=== PATIENT | male | born 2000 | race Caucasian/White ===

== ENCOUNTER 2023-06-15 07:40 | Emergency (ER) | payer OTHER, SELFPAY ==
[2023-06-15] VITALS (12 sets, daily range): BP systolic 99–136; BP diastolic 57–99; PULSE 75–106; RESP 11–24; TEMP 37.2; O2SAT 93–99; BMI 36.2
--- NOTE | 2023-06-15 07:56 | EDS_ITS ---
HPI History of Present Illness Chief Complaint: Overdose Informant: patient Onset/Context/Timing Onset: Today Timing: Continuous Quality: Aching Location: Generalized Worsened by: Nothing Relieved by: Nothing Associated Symptoms Associated Symptoms: Positive for suicidal ideation; Negative for vomiting*, di arrhea*, fever*, rash*, seizure, palpatations or homicidal ideation Narrative Narrative: Patient presents with overdose that was noticed this morning. Patient's grandmother found the patient unresponsive this morning. EMS noted an empty bottle of Lamictal and an empty bottle of Benadryl. Patient admits to taking approximately 48 Lamictal tablets. Patient states he wanted to hurt himself. Patient denies any nausea or vomiting after taking the medications. Patient admits to some pain in his chest. Patient admits to pain all over. [facility] Medical History (Updated 06/15/23 @ 14:[address] Alejandro Thomas, ) Depression Allergy/AdvReac Type Severity Reaction Status Date / Time No Known Allergies Allergy Verified 06/15/23 07:56 Social History Smoking Status: Unknown if ever smoked ROS ROS ED Constitutional Constitutional ED: Denies chills or fever(s) Eyes Eyes: Reports blurry vision and change in vision bilateral ENT ENT ED: Denies rhinorrhea or sore throat Cardiovascular Cardiovascular: Reports chest pain; Denies palpitations Respiratory/Chest Respiratory/Chest: Denies cough or dyspnea Gastrointestinal Gastrointestinal: Reports abdominal pain; Denies nausea or vomiting Genitourinary Genitourinary ED: Denies dysuria or hematuria Musculoskeletal Musculoskeletal: Reports back pain and neck pain Integumentary Denies abscess or rash Neurologic Neurologic: Reports headache(s); Denies weakness Psychiatric Psychiatric: Reports depression, suicidal ideation and suicidal thoughts Allergic/Immunologic Allergic/Immunologic ED: Denies mouth swelling or urticaria EXAM Physical Exam Const Vital Signs: 06/15/23 07:42 06/15/23 08:41 06/15/23 09:41 Temperature 98.9 F Temperature Source Temporal Pulse Rate 96 86 106 H Respiratory Rate 20 H 22 H 24 H Blood Pressure 127/69 H 128/69 H 114/62 Blood Pressure Mean 88 88 79 Pulse Ox 99 97 96 Oxygen Delivery Method Room Air Room Air Room Air 06/15/23 10:41 06/15/23 11:22 06/15/23 13:16 Temperature Temperature Source Pulse Rate 90 78 81 Respiratory Rate 20 H 11 L 16 Blood Pressure 105/57 L 99/59 L 120/67 Blood Pressure Mean 73 72 84 Pulse Ox 93 Oxygen Delivery Method Room Air Room Air Room Air 06/15/23 14:18 06/15/23 15:21 Temperature Temperature Source Pulse Rate 75 89 Respiratory Rate 20 H 19 H Blood Pressure 113/71 112/66 Blood Pressure Mean 85 81 Pulse Ox 97 96 Oxygen Delivery Method Room Air Room Air Positive well nourished, well developed and obese General Appearance ED: well developed and NAD Nutritional Appearance: obese HEENT Reports moist mucous membranes Neck supple and no JVD Chest Wall inspection of chest normal and palpation of chest normal Resp normal respiratory effort and clear to auscultation bilaterally Cardio regular rate and regular rhythm GI soft to palpation and non-distended Palpation: tender epigastric, LLQ, RLQ, LUQ, RUQ, periumbilical and suprapubic; Negative for guarding Extremity General Extremety ED: Negative for edema General Extremity: Negative for edema Neuro oriented x3, CN's II-XII intact bilaterally and no sensory deficits noted Sensorium / Orientation: alert Motor Exam: general weakness Psych Activity / Motor Behavior: avoids eye contact Speech: minimal and soft Mood & Affect: depressed and flat affect Thought Content: suicidality MDM MDM MDM Narrative Medical decision making narrative: Differential diagnosis includes lamotrigine toxicity, anticholinergic toxicity, suicidal ideation, electrolyte abnormality, cardiac dysrhythmia, cardiac ischemia. EKG will be obtained to assess for cardiac dysrhythmia and cardiac ischemia. CBC will be obtained to assess for leukocytosis and anemia. Comprehensive metabolic profile will be obtained to assess for hepatic function, renal function, and electrolyte abnormality. Acetaminophen level and salicylate level will be obtained to assess for coingestions. Serum alcohol level will be obtained to assess for alcohol intoxication. Urine tox screen will be obtained to assess for substance abuse. Lab Data Attestation: I reviewed the patient's lab results. Lab results narrative: CBC was reviewed and shows a slight leukocytosis of 13.5. The remainder is within normal limits. Comprehensive metabolic profile was reviewed and is essentially within normal limits. Acetaminophen level was less than 2.0. Salicylate level was less than 1.7. Urine tox screen was positive for cannabinoids. Labs: Laboratory Results - last 24 hr 06/15/23 06/15/23 08:10 08:43 WBC 13.5 H RBC 5.09 Hgb 15.0 Hct 46.1 MCV 90.6 MCH 29.5 MCHC 32.5 RDW Std Deviation 44.4 H RDW Coeff of Blaire 13.4 Plt Count 251 MPV 9.8 Immature Gran % (Auto) 0.400 Neut % (Auto) 66.6 Lymph % (Auto) 22.5 Maury % (Auto) 9.7 Eos % (Auto) 0.4 Baso % (Auto) 0.4 Absolute Neuts (auto) 9.0 H Absolute Lymphs (auto) 3.04 Nucleated RBC % 0 Sodium 137 Potassium 3.8 Chloride 103 Carbon Dioxide 27.0 Anion Gap 7 BUN 19 H Creatinine 1.01 Estim Creat Clear Calc 119.08 Est GFR (MDRD) Af Amer 116 Est GFR (MDRD) Non-Af 96 BUN/Creatinine Ratio 18.8 Glucose 88 Calcium 9.3 Total Bilirubin 0.60 AST 41 H ALT 53 Alkaline Phosphatase 77 Total Protein 8.3 H Albumin 4.7 Globulin 3.6 Albumin/Globulin Ratio 1.3 Salicylates < 1.7 L Urine Opiates Screen NEGATIVE Urine Methadone Screen NEGATIVE Acetaminophen < 2.0 L Ur Barbiturates Screen NEGATIVE Ur Phencyclidine Scrn NEGATIVE Ur Amphetamines Screen NEGATIVE MDMA (Ecstasy) Screen NEGATIVE U Benzodiazepines Scrn NEGATIVE Urine Cocaine Screen NEGATIVE U Cannabinoids Screen POSITIVE H Ur Drug Screen Comment Ethyl Alcohol < 3.0 EKG Initial EKG: Attestation: I personally reviewed and interpreted this EKG as follows: Interpretation: Sinus Rhythm (95) and No Acute Injury Pattern Comments: EKG was obtained. On my independent interpretation, it showed a normal sinus rhythm with a rate of 95. MA interval, QRS interval, and QTc intervals were all normal. [place]phant was normal. There are no acute ST or T wave changes. Prior EKG tracings: not available for review Prior: No Prior Treatment and Re-Evaluation Narrative: Suicide precautions were maintained. He was given a dose of Zofran here. Case was discussed with poison control. They recommended observing the patient for approximately 8 hours. They recommended monitoring the QRS for prolongation. Patient was monitored here in the emergency department and there was no prolongation of the QRS. Patient was also monitored for signs of anticholinergic toxicity. Patient had no signs of this. Case was discussed with the community mental health social worker. She will be in to evaluate the patient. Patient I feel the patient would benefit from inpatient treatment. plant care worker is agreeable with this. She will attempt to find placement for the patient. Patient was accepted to [facility]. Transfer form and pink slip were filled out. Patient will be transferred there. Discharge Plan Triage Chief Complaint: Overdose ED Provider: Alejandro Thomas Dx/Rx/DC Orders Clinical Impression: Suicide attempt, Overdose of lamotrigine Primary Care Provider: Care Physician,No Primary Referrals: Care Physician,No Primary [Primary Care Provider] - Disposition Disposition: Psychiatric Hospital or Unit Discharge Location: [facility]
--- NOTE | 2023-06-15 08:06 | EKG12_ITS ---
Test Reason : PLACEMENT Blood Pressure : / mmHG Vent. Rate : 095 BPM Atrial Rate : 095 BPM P-R Int : 140 ms QRS Dur : 098 ms QT Int : 378 ms P-R-T Axes : 070 064 043 degrees QTc Int : 475 ms Normal sinus rhythm Normal ECG Confirmed by ONESIMO CHAVEZ, DALI ([id number]), film and video editor PITER STEELE ([id number]) on 06/17/2023 1:40:10 PM Referred By: Confirmed By:DALI ECHOLS MD
--- NOTE | 2023-06-15 08:11 | NURSING ---
no old ekgs
[2023-06-15 08:18] LABS: Absolute Lymphocyte Count 3.04 X10^3/uL (0.83-4.51); Basophil# 0.05 X10^3/uL; Basophil% 0.4 % (0-1); Eosinophil# 0.05 X10^3/uL; Eosinophils% 0.4 % (0-5); Hematocrit 46.1 % (40-54); Lymphocyte # 3.04 X10^3/ul (0.83-4.51); Lymphocyte % 22.5 % (19-41); Mean Corp Hgb Conc 32.5 g/dL (32-36); Mean Corpuscular Hgb 29.5 pg (27.0-32.0); Mean Corpuscular Volume 90.6 fL (80-94); Mean Platelet Vol. 9.8 fl (6.2-12.0); Monocyte# 1.31 X10^3/uL; Monocyte% 9.7 % (0-10); NRBC Flagged by Analyzer 0 % (0-5); Neutrophil # 9.02 X10^3/uL (2.7-7.7); Neutrophil % 66.6 % (47-70); Platelet Count 251 K/mm3 (150-450); RBC Distribution Width CV 13.4 % (11.6-14.6); RBC Distribution Width SD 44.4 fl (35.1-43.9); Red Blood Count 5.09 M/mm3 (4.6-6.2); White Blood Count 13.5 K/mm3 (4.4-11.0)
[2023-06-15 08:35] LABS: ALB/GLOB Ratio 1.3 RATIO (0.9-2.4); AST(SGOT) 41 U/L (15-37); Alanine Aminotransfer ALT/SGPT 53 U/L (16-61); Albumin, Serum 4.7 g/dL (3.2-5.0); Alkaline Phosphatase 77 U/L (45-117); Anion Gap 7 (5-15); BUN 19 mg/dL (7-18); BUN/Creat Ratio 18.8 RATIO (10-20); Calcium,Total 9.3 mg/dL (8.5-10.1); Chloride 103 mmol/L (98-107); Creatinine, Serum 1.01 mg/dL (0.70-1.30); EST Glomerular Filtration Rate 96 mL/min (>60); Est Glom Filt Rate - Afr Amer 116 mL/min (>60); Estimated Creatinine Clearance 119.08 ml/min; Globulin 3.6 g/dL (2.2-4.2); Glucose 88 mg/dL (74-106); Potassium 3.8 mmol/L (3.5-5.1); Protein, Total 8.3 g/dL (6.4-8.2); Sodium Level 137 mmol/L (136-145)
[2023-06-15 09:04] LABS: Acetaminophen (Tylenol) Level < 2.0 ug/mL (10.0-30.0); Salicylate < 1.7 mg/dL (2.8-20.0)
[2023-06-15 09:16] LABS: Amphetamine Urine VISTA NEGATIVE (<1000 ng/mL); Barbiturate Urine VISTA NEGATIVE (< 200 ng/mL); Benzodiazepine Urine VISTA NEGATIVE (< 200 ng/mL); Cocaine Urine VISTA NEGATIVE (< 300 ng/mL); Ecstacy Urine VISTA NEGATIVE (< 500 ng/mL); Methadone Urine VISTA NEGATIVE (< 300 ng/mL); PCP Urine VISTA NEGATIVE (< 25 ng/mL); THC Urine VISTA POSITIVE (< 50 ng/mL); Vista UDS pH Range 5
[2023-06-15 09:29] LABS: Alcohol, Blood (Medical)-Serum < 3.0 mg/dL
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
[2023-06-15] MEDS: Ondansetron 4 MG/2 ML Vial IV ×2 (13:08→15:17)
--- NOTE | 2023-06-15 15:28 | NURSING ---
[id number] UN[address] NURSE TO NURSE [phone] RAMIREZ
--- NOTE | 2023-06-15 15:28 | CM.ED ---
Social Work [facility] accepted patient to [address]. Nurse to nurse number is [phone]. Updated pink slip faxed to [facility]. [facility] to schedule transport. Aisha Whitley CONDITIONER TUMBLER OPERATOR, TEA TREE FARMER
--- NOTE | 2023-06-15 15:34 | NURSING ---
CALLED [facility], ETA IS 2 HRS
--- NOTE | 2023-06-15 15:57 | ED.RN ---
THIS RN CALLED REPORT TO [facility] AT 1549. REPORT GIVEN TO ROSE FLORES.
--- NOTE | 2023-06-15 16:53 | ED.RN ---
PT SITTING UP IN BED TALKING TO SITTER.
--- NOTE | 2023-06-15 17:14 | NURSING ---
[facility] CALLED, ETA IS 25 TO 30 MIN
--- NOTE | 2023-06-15 17:57 | ED.RN ---
REPORT GIVEN TO GABO WITH [facility] AT 1759.
--- NOTE | 2023-06-15 18:02 | ED.RN ---
[facility] DEPARTS WITH PT AT 1803. PT A&OX3 DENIES FEELING NAUSEAS PRIOR TO LEAVING.
== END 2023-06-15 18:04 ==
PROVIDERS: Emergency Provider Emergency Medicine; Visit Provider Emergency Medicine
DX: T42.6X2A Poisoning by other antiepileptic and sedative-hypnotic drugs, intentional self-harm, initial encounter (principal); E66.9 Obesity, unspecified
CPT/HCPCS: 80053; 80307; 80329; 82077; 85025; 93005; 96374; 96376; 99285; A4216; G0480; J2405